=== PATIENT | female | born 1985 | race Caucasian/White ===

== ENCOUNTER 2017-10-03 16:11 | Day surgery (SDC) | payer OTHER ==
[~2017-10-03] VITALS: Ht 162.6 cm; Wt 60.4 kg
[~2017-10-03 16:11] MED LIST: IBUP-1223 PO; OXYC-302 PO
[2017-10-03 16:50] VITALS: BP 107/69
[2017-10-03] MEDS ORDERED: MIDAZOLAM 1 MG/ML, 2ML ONE (17:06)
[2017-10-03] MEDS ORDERED: FENTANYL PF 250 MCG/5ML ONE (17:06)
[2017-10-03] MEDS ORDERED: PROPOFOL 10 MG/ML, 20ML ONE (17:08)
[2017-10-03] MEDS ORDERED: ONDANSETRON 2MG/ML, 2ML ONE (17:08)
[2017-10-03] MEDS ORDERED: DEXAMETHASONE 4 MG/ML, 1ML ONE ×2 (17:08)
[2017-10-03] MEDS ORDERED: MISOPROSTOL 200 MCG TABLET ONE (17:14)
[2017-10-03] MEDS ORDERED: SILVER NITRATE STICK TP ONE (17:14)
[2017-10-03] MEDS ORDERED: OXYTOCIN 10 UNITS/ML, 1ML ONE (17:14)
[2017-10-03] MEDS ORDERED: METHYLERGONOVINE 0.2 MG/ML IM ONE (17:15)
[2017-10-03] MEDS ORDERED: ROCURONIUM 10MG/ML,5ML ONE (17:22)
[2017-10-03] MEDS ORDERED: MORPHINE SULFATE 4 MG/ML, 1ML IVPush PRN (18:00)
[2017-10-03] MEDS ORDERED: PROMETHAZINE 12.5 MG SUPP PR PRN (18:00)
[2017-10-03] MEDS ORDERED: LABETALOL 5MG/ML, 20ML IV PRN (18:00)
[2017-10-03] MEDS ORDERED: HYDROmorphone 1 MG/ML, 1ML IV PRN (18:00)
[2017-10-03] MEDS ORDERED: ONDANSETRON ODT 8 MG PO PRN (18:00)
[2017-10-03] MEDS ORDERED: ACETAMINOPHEN 325 MG TABLET PO PRN (18:00)
[2017-10-03] MEDS ORDERED: FENTANYL PF 100 MCG/2ML IV PRN (18:00)
[2017-10-03] MEDS ORDERED: PROMETHAZINE 25 MG/ML, 1ML IV PRN (18:00)
[2017-10-03] MEDS ORDERED: MEPERIDINE/PF 25MG/0.5ML IVPush PRN (18:00)
[2017-10-03] MEDS ORDERED: OXYcodone 5 MG/5 ML ORAL.SOL UDC PO PRN ×2 (18:00→20:30)
[2017-10-03] MEDS ORDERED: hydrALAzine 20 MG/ML, 1ML IV PRN (18:00)
[2017-10-03] MEDS ORDERED: PROMETHAZINE 25 MG SUPP PR PRN (18:00)
[2017-10-03] MEDS ORDERED: ONDANSETRON 2MG/ML, 2ML IV PRN (18:00)
[2017-10-03] MEDS ORDERED: SUCCINYLCHOLINE 20 MG/ML, 10ML ONE (18:02)
[2017-10-03] MEDS ORDERED: LIDOCAINE 1%-EPI 1:100K, 30ML ONE (18:11)
[2017-10-03] MEDS ORDERED: KETOROLAC 30 MG/1 ML ONE (18:18)
[2017-10-03] MEDS ORDERED: MEPERIDINE/PF 50 MG/ML ONE (18:38)
[2017-10-03 19:30] VITALS: BP 127/62
[2017-10-03] MEDS ORDERED: LACTATED RINGERS 1,000 ML IV SCH (20:10)
[2017-10-03] MEDS ORDERED: ONDANSETRON 2MG/ML, 2ML IVPush PRN (20:30)
[2017-10-03] MEDS ORDERED: PROMETHAZINE 12.5 MG SUPP PR ONE (20:30)
[2017-10-03] MEDS ORDERED: morphine SULFATE 10 MG/ML, 1ML IVPush PRN (20:30)
[2017-10-03] MEDS ORDERED: LACTATED RINGERS 500 ML IVBOLUS ONE (20:30)
[2017-10-03] MEDS ORDERED: KETOROLAC 30 MG/1 ML IVPush PRN (20:30)
[2017-10-03] MEDS ORDERED: PROMETHAZINE 25 MG/ML, 1ML IVPush ONE (20:30)
[2017-10-03] MEDS ORDERED: IBUPROFEN 600 MG TABLET PO SCH (21:00)
== END 2017-10-03 20:35 | disposition home or self-care (01) ==
LOC: OR 16:11 → 4NOR 16:18 → OR 20:35
PROVIDERS: ATTEND Obstetrics & Gynecology
DX: O02.1 Missed abortion (principal); Z3A.11 11 weeks gestation of pregnancy; Z98.890 Other specified postprocedural states; Z79.899 Other long term (current) drug therapy
CPT/HCPCS: 59820; 88305; J0330; J1100; J1885; J2175; J2250; J2405; J2704; J3010; J3490; J2210; J2590